=== PATIENT | male | born 1960 | race Caucasian/White ===

== ENCOUNTER → 2017-03-03 15:32 | Emergency (ER) | payer BC ==
[~2017-03-03 15:32] MED LIST: Cyclobenzaprine TAB* 10 MG PO ONE
[2017-03-03 18:34] VITALS: BP 145/92
--- NOTE | 2017-03-21 15:39 | ED ---
Back Pain - HPI Summary HPI Summary: Pt here w LBP x few days. Very active and thinks he's overdid it. Has had this before and typically gets better w/ rest. Has required flexeril once in the past which worked well and feels he's in the same place this time. Sore and tight w movement. Better w/ rest. Denies numbness, tingling, weakness, bladder/ bowel changes. - History of Current Complaint Chief Complaint: EDBackInjuryPain Stated Complaint: BACK PAIN Time Seen by Provider: 03/03/17 17:32 Hx Obtained From: Patient Pain Intensity: 2 Pain Scale Used: 0-10 Numeric - Allergies/Home Medications Allergies/Adverse Reactions: Allergies Allergy/AdvReac Type Severity Reaction Status Date / Time No Known Allergies Allergy Verified 02/10/16 14:48 PMH/Surg Hx/FS Hx/Imm Hx Previously Healthy: Yes Infectious Disease History: Yes Infectious Disease History: Denies: Traveled Outside the [place] in Last 30 Days - Family History Known Family History: Positive: None - Social History Alcohol Use: Daily Alcohol Amount: 6-10 beers Hx Substance Use: No Substance Use Type: Reports: None Hx Tobacco Use: No Smoking Status (MU): Never Smoked Tobacco Review of Systems Negative: Fever, Chills, Fatigue Gastrointestinal: Negative Negative: Abdominal Pain, Vomiting, Diarrhea, Nausea Negative: frequency, flank pain, hematuria, incontinence, urgency Musculoskeletal: Other - see HPI Skin: Negative Neurological: Negative Psychological: Normal All Other Systems Reviewed And Are Negative: Yes Physical Exam Triage Information Reviewed: Yes Vital Signs On Initial Exam: Initial Vitals Temp Pulse Resp BP Pulse Ox 98.8 F 96 18 138/87 99 03/03/17 15:36 03/03/17 15:36 03/03/17 15:36 03/03/17 15:36 03/03/17 15:36 Vital Signs Reviewed: Yes Appearance: Positive: Well-Appearing, Well-Nourished, Pain Distress - mild Skin: Positive: Warm, Dry - no erythema, no ecchymosis Head/Face: Positive: Normal Head/Face Inspection Respiratory/Lung Sounds: Positive: Breath Sounds Present Cardiovascular: Positive: Normal, Pulses are Symmetrical in both Upper and Lower Extremities Abdomen Description: Negative: Pulsatile Mass Bowel Sounds: Positive: Present Musculoskeletal: Positive: Strength/ROM Intact - LE's, Limited @ - lumbar ROM limited d/t pain, Pain @ - paracervical lumbar mm taught and TTP - spinous pp NTTP Neurological: Positive: Normal, Sensory/Motor Intact, Alert, Oriented to Person Place, Time, CN Intact II-III, Reflexes Intact Psychiatric: Positive: Normal Diagnostics - Vital Signs Vital Signs Temp Pulse Resp BP Pulse Ox 03/03/17 18:31 98.6 F 86 16 145/92 96 03/03/17 15:36 98.8 F 96 18 138/87 99 - Laboratory Lab Statement: Any lab studies that have been ordered have been reviewed, and results considered in the medical decision making process. Back Pain Course/Dx - Diagnoses Provider Diagnoses: Lumbar strain, Muscle spasm Discharge - Discharge Plan Condition: Stable Disposition: HOME Prescriptions: Cyclobenzaprine TAB* [Flexeril 10 MG TAB*] 10 mg PO TID PRN #30 tab PRN Reason: Pain Patient Education Materials: Low Back Strain (ED), Lumbar Radiculopathy (ED) Forms: *Work Release Referrals: [facility] [Outside] Additional Instructions: You appear to have a lower back muscle strain. This could be affecting nerves to a minimal degree at this time, but if you do not rest, stretch and allow to heal, this could get worse. You may continue ibuprofen 600mg every 6 hours with food alternating with acetaminophen 650mg every 6 hours. Take flexeril before bed to help you sleep - you may take this up to 3 times a day however it may cause drowsiness - do not take before operating machinery, etc. Stay hydrated - avoid diuretics (ie. caffeine from coffee, tea, soda; alcohol, etc). Drink water, gatorade, etc. Follow-up with PCP if symptoms persist. Call tomorrow to schedule an appointment. *If you develop worsening of pain, leg weakness or numbness, incontinence of bowel/bladder, return to ED
== END | disposition home or self-care (01) ==
LOC: ED 15:32
DX: S39.012A Strain of muscle, fascia and tendon of lower back, initial encounter (principal); M62.838 Other muscle spasm; X58.XXXA Exposure to other specified factors, initial encounter; Y93.9 Activity, unspecified; Y92.9 Unspecified place or not applicable; Y99.9 Unspecified external cause status
CPT/HCPCS: 99282; A9270-GY